=== PATIENT | female | born 1940 | race Two or more races ===

== ENCOUNTER → 2017-02-13 | Outpatient (CLI) | payer MEDICARE ==
[~2017-02-13] MED LIST: ASPI-650 PO; ATOR40TA78 PO; BUTA1CAP30 PO; CARV12.52 PO; CARV25TA12 PO; CEFT1PIG2 IV; CLON0.1T PO; DOCU-30 PO; ENOX40SY4 SQ; FLUC200T PO; FLUT9.9S NAS; GADOBUTROL 10 MMOL/10 ML PFS ONE; HYDR-3240 PO; HYDR20TA22 PO; LATA2.5D2 OP; LEVO750T26 PO; LOSA1TAB17 PO; MAGN400T7 PO; MECL25TA4 PO; METR500T PO; OMEP20CA9 PO; OXYC5TAB3 PO; POLY17PO5 PO; POTA20PA8 PO; SENN1TAB7 PO; SENN8.6C2 PO; TIMO5DRO5 EACHEYE; VANC1VIA3 IV; [UNRECOGNIZED DRUG - CODE] PO
== END | disposition home or self-care (01) ==
LOC: CFH 07:14
PROVIDERS: ATTEND Neurological Surgery
DX: D32.0 Benign neoplasm of cerebral meninges (principal); R90.82 White matter disease, unspecified; Z86.73 Personal history of transient ischemic attack (TIA), and cerebral infarction without residual deficits
CPT/HCPCS: 70553; A9585

== ENCOUNTER → 2017-04-05 | Outpatient (CLI) | payer MEDICARE ==
[~2017-04-05] MED LIST changes: +DOCU-131 PO; -DOCU-30 PO; -GADOBUTROL 10 MMOL/10 ML PFS ONE; +POTA20PA25 PO; -POTA20PA8 PO
== END | disposition home or self-care (01) ==
LOC: ROC 08:23
PROVIDERS: ATTEND Radiology Radiation Oncology
DX: D32.0 Benign neoplasm of cerebral meninges (principal)
CPT/HCPCS: 99214; G0463

== ENCOUNTER → 2017-04-12 | Outpatient (CLI) | payer MEDICARE ==
[~2017-04-12] MED LIST changes: +GADOBUTROL 10 MMOL/10 ML PFS ONE
== END | disposition home or self-care (01) ==
LOC: CFH 11:36
PROVIDERS: ATTEND Radiology Radiation Oncology
DX: D32.0 Benign neoplasm of cerebral meninges (principal)
CPT/HCPCS: 70553; A9585

== ENCOUNTER 2017-05-06 21:59 | Emergency (ER) | payer MEDICARE ==
[~2017-05-06] VITALS: Ht 160 cm; Wt 100.0 kg
[~2017-05-06 21:59] MED LIST changes: -GADOBUTROL 10 MMOL/10 ML PFS ONE; -LOSA1TAB17 PO; +LOSA1TAB22 PO
[2017-05-06] MEDS ORDERED: LIDOCAINE 1%, 20ML ONE (22:26)
[2017-05-06] MEDS ORDERED: LIDOCAINE 1%, 20ML INFIL ONE (22:30)
[2017-05-06] MEDS ORDERED: BACITRACIN ZINC OINT 500U/GM, 0.9 GM ONE (23:13)
[2017-05-06] MEDS ORDERED: BETH25TA16 PO (23:18)
[2017-05-06] MEDS ORDERED: MONT10TA9 PO (23:18)
[2017-05-06 23:20] VITALS: BP 156/60
== END 2017-05-07 00:05 | disposition home or self-care (01) ==
LOC: ED 23:14
DX: S06.0X0A Concussion without loss of consciousness, initial encounter (principal); S01.81XA Laceration without foreign body of other part of head, initial encounter; E11.9 Type 2 diabetes mellitus without complications; W06.XXXA Fall from bed, initial encounter; Y93.89 Activity, other specified; Y92.009 Unspecified place in unspecified non-institutional (private) residence as the place of occurrence of the external cause; Y99.9 Unspecified external cause status
CPT/HCPCS: 13132; 70450; 99285

== ENCOUNTER → 2017-11-08 | Outpatient (CLI) | payer MEDICARE ==
[~2017-11-08] MED LIST changes: +BETH25TA16 PO; +MONT10TA9 PO
== END ==
LOC: ROC 07:30
PROVIDERS: ATTEND Radiology Radiation Oncology
DX: Z08 Encounter for follow-up examination after completed treatment for malignant neoplasm (principal); D32.0 Benign neoplasm of cerebral meninges; Z88.0 Allergy status to penicillin; Z79.82 Long term (current) use of aspirin; Z98.890 Other specified postprocedural states
CPT/HCPCS: 99213; G0463

== ENCOUNTER 2018-01-03 06:22 | Emergency (ER) | payer MEDICARE ==
[~2018-01-03] VITALS: Ht 162.6 cm; Wt 104.0 kg
[2018-01-03 06:25] VITALS: BP 130/82
== END 2018-01-03 08:53 | disposition home or self-care (01) ==
LOC: ED 07:21
DX: L04.0 Acute lymphadenitis of face, head and neck (principal); E11.9 Type 2 diabetes mellitus without complications; Z88.5 Allergy status to narcotic agent; Z88.0 Allergy status to penicillin
CPT/HCPCS: 76536; 99284

== ENCOUNTER → 2018-02-06 | Outpatient (CLI) | payer MEDICARE ==
[~2018-02-06] MED LIST changes: +LIDOCAINE-MPF 1%, 2ML ONE; +OMNIPAQUE 350 MG/ML, 100ML BOTTLE ONE
== END | disposition home or self-care (01) ==
LOC: RAD 13:14 → EDSTATUS 14:00
PROVIDERS: ATTEND Family Medicine
DX: C82.11 Follicular lymphoma grade II, lymph nodes of head, face, and neck (principal); E11.9 Type 2 diabetes mellitus without complications; Z79.82 Long term (current) use of aspirin; Z98.890 Other specified postprocedural states; Z79.899 Other long term (current) drug therapy; Z88.5 Allergy status to narcotic agent; Z88.0 Allergy status to penicillin
CPT/HCPCS: 38505; 70491; 76942; 88305; 88341; 88342; J3490; Q9967; 19083; G0461

== ENCOUNTER → 2018-04-16 | Outpatient (CLI) | payer MEDICARE ==
[~2018-04-16] MED LIST changes: -LIDOCAINE-MPF 1%, 2ML ONE; -SENN1TAB7 PO; +SENN1TAB8 PO
== END | disposition home or self-care (01) ==
LOC: CFH 08:23
PROVIDERS: ATTEND Family Medicine
DX: R91.1 Solitary pulmonary nodule (principal); R59.9 Enlarged lymph nodes, unspecified; K44.9 Diaphragmatic hernia without obstruction or gangrene; M47.9 Spondylosis, unspecified
CPT/HCPCS: 71260; 74177; Q9967

== ENCOUNTER → 2018-04-27 | Outpatient (CLI) | payer MEDICARE ==
[~2018-04-27] MED LIST changes: -OMNIPAQUE 350 MG/ML, 100ML BOTTLE ONE
== END | disposition home or self-care (01) ==
LOC: PETCFH 13:21
PROVIDERS: ATTEND Specialist
DX: R91.1 Solitary pulmonary nodule (principal); R59.0 Localized enlarged lymph nodes; R59.9 Enlarged lymph nodes, unspecified
CPT/HCPCS: 78815; A9552

== ENCOUNTER → 2018-05-02 | Outpatient (CLI) | payer MEDICARE ==
[~2018-05-02] MED LIST changes: +GADOBUTROL 10 MMOL/10 ML PFS ONE
== END | disposition home or self-care (01) ==
LOC: CFH 09:27
PROVIDERS: ATTEND Specialist
DX: I65.21 Occlusion and stenosis of right carotid artery (principal); I67.82 Cerebral ischemia; R90.82 White matter disease, unspecified; C82.08 Follicular lymphoma grade I, lymph nodes of multiple sites
CPT/HCPCS: 70553; A9585

== ENCOUNTER → 2018-06-08 | Outpatient (CLI) | payer MEDICARE ==
[~2018-06-08] MED LIST changes: -GADOBUTROL 10 MMOL/10 ML PFS ONE; +LIDOCAINE 1%, 20ML ONE; +LIDOCAINE 1%-EPI 1:100K, 20ML ONE; +SODIUM BICARBONATE 4.0%, 5ML ONE
== END | disposition home or self-care (01) ==
LOC: CFH 07:33
PROVIDERS: ATTEND Specialist
DX: C50.512 Malignant neoplasm of lower-outer quadrant of left female breast (principal); C77.3 Secondary and unspecified malignant neoplasm of axilla and upper limb lymph nodes; Z88.1 Allergy status to other antibiotic agents; Z88.5 Allergy status to narcotic agent; Z88.8 Allergy status to other drugs, medicaments and biological substances
CPT/HCPCS: 19083; 38505; 76942; 88305; 88341; 88342; 88360; J3490

== ENCOUNTER 2018-08-02 11:20 | Outpatient (CLI) | payer MEDICARE ==
[~2018-08-02 11:20] MED LIST changes: -CLON0.1T PO; +CLON0.1T22 PO; -HYDR20TA22 PO; +HYDR20TA23 PO; -LIDOCAINE 1%, 20ML ONE; -LIDOCAINE 1%-EPI 1:100K, 20ML ONE; -SODIUM BICARBONATE 4.0%, 5ML ONE
[2018-09-06] MEDS ORDERED: LOSA1TAB25 PO (10:43)
[2018-09-06] MEDS ORDERED: ASPI-496 PO (10:43)
[2018-09-06] MEDS ORDERED: LOVA40TA2 PO (10:46)
[2018-09-06] MEDS ORDERED: ALBU8.5H8 PO (10:46)
[2018-09-06] MEDS ORDERED: TIOT18CA INH (10:46)
== END 2018-08-02 23:59 | disposition home or self-care (01) ==
LOC: RAD 11:20
PROVIDERS: ATTEND Internal Medicine Cardiovascular Disease
DX: Z02.9 Encounter for administrative examinations, unspecified (principal)

== ENCOUNTER → 2018-08-03 | Outpatient (CLI) | payer MEDICARE | END | disposition home or self-care (01) | LOC: CVU 07:42 | PROVIDERS: ATTEND Internal Medicine Cardiovascular Disease | DX: Z01.810 Encounter for preprocedural cardiovascular examination (principal); I08.0 Rheumatic disorders of both mitral and aortic valves; I25.10 Atherosclerotic heart disease of native coronary artery without angina pectoris; I46.9 Cardiac arrest, cause unspecified | CPT/HCPCS: 93306 ==

== ENCOUNTER → 2018-08-09 | Outpatient (CLI) | payer MEDICARE ==
[~2018-08-09] MED LIST changes: +REGADENOSON 0.4 MG/5 ML SYRINGE ONE
== END | disposition home or self-care (01) ==
LOC: RAD 11:36
PROVIDERS: ATTEND Internal Medicine Cardiovascular Disease
DX: Z01.810 Encounter for preprocedural cardiovascular examination (principal); I25.10 Atherosclerotic heart disease of native coronary artery without angina pectoris; Z86.74 Personal history of sudden cardiac arrest
CPT/HCPCS: 78452; 93017; A9502; J2785

== ENCOUNTER → 2018-08-14 | Outpatient (CLI) | payer MEDICARE ==
[~2018-08-14] MED LIST changes: +GADOBUTROL 10 MMOL/10 ML PFS ONE; -REGADENOSON 0.4 MG/5 ML SYRINGE ONE
== END | disposition home or self-care (01) ==
LOC: CFH 07:21
PROVIDERS: ATTEND Radiology Radiation Oncology
DX: D32.0 Benign neoplasm of cerebral meninges (principal)
CPT/HCPCS: 70553; A9585

== ENCOUNTER → 2018-08-15 | Outpatient (CLI) | payer MEDICARE ==
[~2018-08-15] MED LIST changes: -GADOBUTROL 10 MMOL/10 ML PFS ONE
== END | disposition home or self-care (01) ==
LOC: ROC 08:10
PROVIDERS: ATTEND Radiology Radiation Oncology
DX: Z08 Encounter for follow-up examination after completed treatment for malignant neoplasm (principal); D32.0 Benign neoplasm of cerebral meninges
CPT/HCPCS: 99213; G0463

== ENCOUNTER 2018-09-13 05:56 | Observation (INO) | payer MEDICARE ==
[~2018-09-13] VITALS: Ht 162.6 cm; Wt 106.8 kg
[~2018-09-13 05:56] MED LIST changes: +ALBU8.5H8 PO; +ASPI-496 PO; +LOSA1TAB25 PO; +LOVA40TA2 PO; +SENN-177 PO; -SENN1TAB8 PO; +TIOT18CA INH
[2018-09-13 06:22] VITALS: BP 152/80
[2018-09-13] MEDS ORDERED: LACTATED RINGERS 1,000 ML IV SCH ×2 (06:34→15:00)
[2018-09-13] MEDS ORDERED: ISOSULFAN BLUE 10 MG/ML, 5ML IV ONE (07:17)
[2018-09-13] MEDS ORDERED: BUPIVACAINE/PF-EPI 0.5% 1:200K ONE (07:17)
[2018-09-13] MEDS ORDERED: MIDAZOLAM 1 MG/ML, 2ML ONE (07:48)
[2018-09-13] MEDS ORDERED: FENTANYL PF 250 MCG/5ML ONE (07:49)
[2018-09-13] MEDS ORDERED: PROPOFOL 10 MG/ML, 20ML ONE (07:50)
[2018-09-13] MEDS ORDERED: SUCCINYLCHOLINE 20 MG/ML, 10ML ONE (07:52)
[2018-09-13] MEDS ORDERED: DEXAMETHASONE 4 MG/ML, 5ML ONE (07:53)
[2018-09-13] MEDS ORDERED: NALOXONE 0.4 MG/ML, 1ML ONE (07:53)
[2018-09-13] MEDS ORDERED: KETOROLAC 30 MG/1 ML ONE (07:53)
[2018-09-13] MEDS ORDERED: ALBUTEROL SULFATE 200 PUFFS/8.5 GR INH ONE (07:53)
[2018-09-13] MEDS ORDERED: CEFAZOLIN 1,000 MG ONE (07:53)
[2018-09-13] MEDS ORDERED: ONDANSETRON 2MG/ML, 2ML ONE (07:53)
[2018-09-13] MEDS ORDERED: EPHEDRINE 50 MG/ML, 1ML ONE (07:53)
[2018-09-13] MEDS ORDERED: GLYCOPYRROLATE 0.2MG/1ML, 5ML ONE (07:53)
[2018-09-13] MEDS ORDERED: ROCURONIUM 10 MG/ML,10ML ONE (07:53)
[2018-09-13] MEDS ORDERED: GABAPENTIN 300 MG CAPSULE PO ONE (08:00)
[2018-09-13] MEDS ORDERED: SCOPOLAMINE PATCH, 1.5MG PATCH.TD72 TD ONE (08:00)
[2018-09-13] MEDS ORDERED: ACETAMINOPHEN 500 MG TABLET PO ONE (08:00)
[2018-09-13] MEDS ORDERED: DIAZEPAM 5 MG TABLET PO ONE (08:00)
[2018-09-13] MEDS ORDERED: ALBUTEROL HFA 90 MCG/SPRAY ONE (09:15)
[2018-09-13] MEDS ORDERED: ONDANSETRON 2MG/ML, 2ML IV PRN ×2 (09:30→15:00)
[2018-09-13] MEDS ORDERED: FENTANYL PF 100 MCG/2ML IV PRN (09:30)
[2018-09-13] MEDS ORDERED: hydrALAzine 20 MG/ML, 1ML IV PRN (09:30)
[2018-09-13] MEDS ORDERED: HALOPERIDOL 5 MG/ML IV PRN (09:30)
[2018-09-13] MEDS ORDERED: ALBUTEROL SULFATE 2.5 MG/3 ML NPPB PRN ×2 (09:30→13:30)
[2018-09-13] MEDS ORDERED: PROMETHAZINE 12.5 MG SUPP PR PRN (09:30)
[2018-09-13] MEDS ORDERED: MEPERIDINE/PF 25MG/0.5ML IVPush PRN (09:30)
[2018-09-13] MEDS ORDERED: LABETALOL 5MG/ML, 20ML IV PRN (09:30)
[2018-09-13] MEDS ORDERED: HYDROmorphone 2 MG/ML, 1ML IVPush PRN (09:30)
[2018-09-13] MEDS ORDERED: ONDANSETRON ODT 8 MG PO PRN (09:30)
[2018-09-13] MEDS ORDERED: MORPHINE SULFATE 4 MG/ML, 1ML IVPush PRN (09:30)
[2018-09-13] MEDS ORDERED: MIDAZOLAM 1 MG/ML, 2ML IV PRN (09:30)
[2018-09-13] MEDS ORDERED: OXYcodone 5 MG/5 ML ORAL.SOL UDC PO PRN (09:30)
[2018-09-13] MEDS ORDERED: DIAZEPAM 5 MG/ML, 2ML IVPush PRN (09:30)
[2018-09-13] MEDS ORDERED: PROMETHAZINE 25 MG/ML, 1ML IV PRN (09:30)
[2018-09-13] MEDS ORDERED: EPHEDRINE 50 MG/ML, 1ML IVPush PRN (09:30)
[2018-09-13] MEDS ORDERED: LABETALOL 5 MG/ML SYRINGE IV PRN ×2 (10:56→15:00)
[2018-09-13 14:00] VITALS: BP 145/85
[2018-09-13] MEDS ORDERED: [UNRECOGNIZED DRUG - OTHER] MC SCH (15:00)
[2018-09-13] MEDS ORDERED: IBUPROFEN 600 MG TABLET PO PRN (15:00)
[2018-09-13] MEDS ORDERED: morphine SULFATE 10 MG/ML, 1ML IV PRN (15:00)
[2018-09-13] MEDS: CEFAZOLIN PMX 2GM/50ML 50 ML IVPB SCH (15:52)
[2018-09-13] MEDS ORDERED: PROAIR HOMEINH PRN (17:00)
[2018-09-13 19:32] VITALS: BP 140/81
[2018-09-13] MEDS: TIMOLOL OPTH HOMEOPHTH SCH (21:00)
[2018-09-13] MEDS: MECLIZINE CHEWABLE 25 MG TAB PO SCH (21:00)
[2018-09-13] MEDS: LOVASTATIN 40 MG TABLET PO SCH (21:00)
[2018-09-13] MEDS: MONTELUKAST 10 MG TABLET PO SCH (21:00)
[2018-09-14] MEDS: CEFAZOLIN PMX 2GM/50ML 50 ML IVPB SCH (00:10)
[2018-09-14 00:16] VITALS: BP 135/76
[2018-09-14 04:48] VITALS: BP 130/83
[2018-09-14] MEDS: OMEPRAZOLE 20 MG CAPSULE.DR PO SCH (05:04)
[2018-09-14] MEDS: LACTATED RINGERS 1,000 ML IV SCH (08:03)
[2018-09-14] MEDS: LOSARTAN 50MG TABLET PO SCH (08:03)
[2018-09-14] MEDS: HYDROCHLOROTHIAZIDE 12.5 MG CAPSULE PO SCH (08:04)
[2018-09-14] MEDS: BETHANECHOL 25 MG TABLET PO SCH ×2 (08:04→16:04)
[2018-09-14] MEDS: CARVEDILOL 25 MG TABLET PO SCH (08:04)
[2018-09-14] MEDS: TIMOLOL OPTH HOMEOPHTH SCH ×2 (08:04→20:18)
[2018-09-14] MEDS: SPIRIVA 18 MCG INH SCH (08:05)
[2018-09-14] MEDS: MECLIZINE CHEWABLE 25 MG TAB PO SCH ×2 (08:16→20:18)
[2018-09-14 08:26] VITALS: BP 138/78
[2018-09-14 13:26] VITALS: BP 123/75
[2018-09-14 19:03] VITALS: BP 120/70
[2018-09-14] MEDS: MONTELUKAST 10 MG TABLET PO SCH (20:18)
[2018-09-14] MEDS: LOVASTATIN 40 MG TABLET PO SCH (20:18)
[2018-09-15] MEDS: LACTATED RINGERS 1,000 ML IV SCH (00:18)
[2018-09-15] MEDS: BETHANECHOL 25 MG TABLET PO SCH ×2 (00:18→08:36)
[2018-09-15 01:14] VITALS: BP 144/84
[2018-09-15] MEDS: OMEPRAZOLE 20 MG CAPSULE.DR PO SCH (05:19)
[2018-09-15 05:22] LABS: BASOPHILS # (AUTO) 0.04 x10^3/uL (0-0.1); BASOPHILS % (AUTO) 1 % (0-1); EOSINOPHILS # (AUTO) 0.21 x10^3/uL (0-0.4); EOSINOPHILS % (AUTO) 3 % (1-7); LYMPHOCYTES # (AUTO) 2.05 x10^3/uL (1-3.4); LYMPHOCYTES % (AUTO) 24 % (22-44); MD NO; MEAN CORPUSCULAR HEMOGLOBIN 32.6 pg (27.0-34.8); MEAN CORPUSCULAR HGB CONC 34.7 g/dL (32.4-35.8); MEAN CORPUSCULAR VOLUME 94.1 fL (80-100); MEAN PLATELET VOLUME 9.9 fL (7.4-10.4); MONOCYTES # (AUTO) 0.76 x10^3/uL (0.2-0.8); MONOCYTES % (AUTO) 9 % (2-9); NEUTROPHILS # (AUTO) 5.49 x10^3/uL (1.8-6.8); NEUTROPHILS % (AUTO) 64 % (42-75); PLATELET COUNT 192 x10^3/uL (130-400); RED BLOOD COUNT 3.51 x10^6/uL (3.82-5.3); RED CELL DISTRIBUTION WIDTH 14.8 % (9.6-15.2)
[2018-09-15 07:30] VITALS: BP 147/75
[2018-09-15] MEDS: HYDROCHLOROTHIAZIDE 12.5 MG CAPSULE PO SCH (08:36)
[2018-09-15] MEDS: LOSARTAN 50MG TABLET PO SCH (08:36)
[2018-09-15] MEDS: CARVEDILOL 25 MG TABLET PO SCH (08:36)
[2018-09-15] MEDS: MECLIZINE CHEWABLE 25 MG TAB PO SCH (08:36)
[2018-09-15] MEDS: TIMOLOL OPTH HOMEOPHTH SCH (08:37)
[2018-09-15] MEDS: SPIRIVA 18 MCG INH SCH (08:37)
[2018-09-15] MEDS ORDERED: TRAM-47 PO (09:46)
[2018-09-16] MEDS ORDERED: BETHANECHOL 25 MG TABLET PO SCH (09:00)
== END 2018-09-15 10:38 | disposition home or self-care (01) ==
LOC: OUT 05:56 → 4NOR 11:49 → OUT 12:42 → OBSVTOIN 09-14 07:30 → INTOOBSV 09-14 07:30 → DCLOUNGE 09-15 10:22
PROVIDERS: ADMIT Surgery; ATTEND Surgery
DX: C50.912 Malignant neoplasm of unspecified site of left female breast (principal); E78.5 Hyperlipidemia, unspecified; I10 Essential (primary) hypertension; I25.10 Atherosclerotic heart disease of native coronary artery without angina pectoris; I25.2 Old myocardial infarction; J44.9 Chronic obstructive pulmonary disease, unspecified; Z85.72 Personal history of non-Hodgkin lymphomas
CPT/HCPCS: 19307; 36415; 85025; 88305; 88307; 88341; 88342; 94640; 96365; 96366; G0378; J0330; J0690; J1100; J1885; J2250; J2310; J2405; J2704; J3010; J3490; J7120; J7613

== ENCOUNTER → 2018-11-15 | Outpatient (CLI) | payer MEDICARE ==
[~2018-11-15] MED LIST changes: +OMNIPAQUE 350 MG/ML, 100ML BOTTLE ONE; +TRAM-47 PO
== END | disposition home or self-care (01) ==
LOC: CFH 08:38
PROVIDERS: ATTEND Specialist
DX: R59.1 Generalized enlarged lymph nodes (principal); N63.20 Unspecified lump in the left breast, unspecified quadrant; K44.9 Diaphragmatic hernia without obstruction or gangrene; R91.1 Solitary pulmonary nodule
CPT/HCPCS: 71260; 74177; 82565; Q9967

== ENCOUNTER 2019-08-12 08:07 | Outpatient (CLI) | payer MEDICARE ==
[~2019-08-12 08:07] MED LIST changes: -MAGN400T7 PO; +MAGN400T9 PO; +MECL-101 PO; -MECL25TA4 PO; +MONT10TA11 PO; -MONT10TA9 PO; -OMNIPAQUE 350 MG/ML, 100ML BOTTLE ONE
== END 2019-08-12 23:59 | disposition home or self-care (01) ==
LOC: CFH 08:07
PROVIDERS: ATTEND Specialist
DX: C82.08 Follicular lymphoma grade I, lymph nodes of multiple sites (principal); C50.112 Malignant neoplasm of central portion of left female breast
CPT/HCPCS: 76700

== ENCOUNTER → 2019-08-16 | Outpatient (CLI) | payer MEDICARE ==
[~2019-08-16] MED LIST changes: +GADOTERATE 10 MMOL/20 ML SYR ONE
== END | disposition home or self-care (01) ==
LOC: CFH 10:41
PROVIDERS: ATTEND Radiology Radiation Oncology
DX: I67.82 Cerebral ischemia (principal); D32.0 Benign neoplasm of cerebral meninges; I65.21 Occlusion and stenosis of right carotid artery; J34.89 Other specified disorders of nose and nasal sinuses; G31.89 Other specified degenerative diseases of nervous system; Z85.79 Personal history of other malignant neoplasms of lymphoid, hematopoietic and related tissues; Z85.3 Personal history of malignant neoplasm of breast
CPT/HCPCS: 70553; A9575

== ENCOUNTER → 2019-09-04 | Outpatient (CLI) | payer MEDICARE ==
[~2019-09-04] MED LIST changes: -GADOTERATE 10 MMOL/20 ML SYR ONE
== END | disposition home or self-care (01) ==
LOC: ROC 07:28
PROVIDERS: ATTEND Radiology Radiation Oncology
DX: C82.20 Follicular lymphoma grade III, unspecified, unspecified site (principal); D32.0 Benign neoplasm of cerebral meninges; C50.912 Malignant neoplasm of unspecified site of left female breast
CPT/HCPCS: 99213; G0463

== ENCOUNTER 2020-02-12 10:47 | Outpatient (CLI) | payer MEDICARE | END 2020-02-12 23:59 | disposition home or self-care (01) | LOC: CFH 10:47 | PROVIDERS: ATTEND Surgery | DX: R92.8 Other abnormal and inconclusive findings on diagnostic imaging of breast (principal); Z85.3 Personal history of malignant neoplasm of breast; Z90.12 Acquired absence of left breast and nipple | CPT/HCPCS: 76642; 77065; G0279; 77063 ==

== ENCOUNTER → 2020-08-19 | Outpatient (CLI) | payer MEDICARE ==
[~2020-08-19] MED LIST changes: -ASPI-650 PO; +ASPI325T20 PO; +GADOTERATE 10 MMOL/20 ML SYR ONE; +HYDR-1067 PO; -HYDR-3240 PO; -HYDR20TA23 PO; +HYDR20TA24 PO; -MONT10TA11 PO; +MONT10TA17 PO; -OXYC5TAB3 PO; +OXYC5TAB98 PO
== END | disposition home or self-care (01) ==
LOC: CFH 06:53
PROVIDERS: ATTEND Radiology Radiation Oncology
DX: D32.0 Benign neoplasm of cerebral meninges (principal); I65.21 Occlusion and stenosis of right carotid artery; J34.1 Cyst and mucocele of nose and nasal sinus
CPT/HCPCS: 70553; A9575

== ENCOUNTER → 2020-08-27 | Outpatient (CLI) | payer MEDICARE ==
[~2020-08-27] MED LIST changes: -GADOTERATE 10 MMOL/20 ML SYR ONE
== END | disposition home or self-care (01) ==
LOC: ROC 09:45
PROVIDERS: ATTEND Radiology Radiation Oncology
DX: Z08 Encounter for follow-up examination after completed treatment for malignant neoplasm (principal); D32.0 Benign neoplasm of cerebral meninges
CPT/HCPCS: 99213; G0463

== ENCOUNTER → 2020-09-11 | Outpatient (CLI) | payer MEDICARE ==
[~2020-09-11] MED LIST changes: +OMNIPAQUE 350 MG/ML, 150 ML BOTTLE ONE
== END | disposition home or self-care (01) ==
LOC: CFH 08:25
PROVIDERS: ATTEND Specialist
DX: C82.08 Follicular lymphoma grade I, lymph nodes of multiple sites (principal); C50.112 Malignant neoplasm of central portion of left female breast; K44.9 Diaphragmatic hernia without obstruction or gangrene; R91.1 Solitary pulmonary nodule; G89.3 Neoplasm related pain (acute) (chronic); D32.9 Benign neoplasm of meninges, unspecified; R59.1 Generalized enlarged lymph nodes; M50.30 Other cervical disc degeneration, unspecified cervical region
CPT/HCPCS: 70491; 71260; 74177; 82565; Q9967

== ENCOUNTER 2020-10-13 08:08 | Outpatient (CLI) | payer MEDICARE ==
[~2020-10-13 08:08] MED LIST changes: -OMNIPAQUE 350 MG/ML, 150 ML BOTTLE ONE
== END 2020-10-13 23:59 | disposition home or self-care (01) ==
LOC: RAD 08:08
PROVIDERS: ATTEND Specialist
DX: C82.08 Follicular lymphoma grade I, lymph nodes of multiple sites (principal); C50.112 Malignant neoplasm of central portion of left female breast; R59.1 Generalized enlarged lymph nodes

== ENCOUNTER 2021-02-05 12:07 | Emergency (ER) | payer MEDICARE ==
[~2021-02-05] VITALS: Ht 162.6 cm; Wt 102.4 kg
[~2021-02-05 12:07] MED LIST changes: -HYDR-1067 PO; +HYDR-2214 PO; -VANC1VIA3 IV; +VANC1VIA36 IV
--- NOTE | 2021-02-05 12:29 | NUR ---
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 Pt sats 99% on 2L/min with ED Board note stating RA sat was 88%. Pt is supposed to be on continuous O2 at 2L/min and had it on while awaiting triage and directly after RA sat was assessed per pt's friend.
[2021-02-05] MEDS ORDERED: FLUT1AER INH (12:41)
[2021-02-05] MEDS ORDERED: TIOT18CA INH (12:41)
[2021-02-05 12:43] LABS: BASOPHILS % (AUTO) 1 % (0-1); EOSINOPHILS % (AUTO) 10 % (1-7); LYMPHOCYTES % (AUTO) 17 % (22-44); MEAN CORPUSCULAR HGB CONC 32.8 g/dL (32.4-35.8); MEAN PLATELET VOLUME 8.4 fL (7.4-10.4); MONOCYTES % (AUTO) 8 % (2-9); NEUTROPHILS % (AUTO) 65 % (42-75); PLATELET COUNT 240 x10^3/uL (130-400); RED BLOOD COUNT 4.13 x10^6/uL (3.82-5.3); RED CELL DISTRIBUTION WIDTH 16.9 % (9.6-15.2)
--- NOTE | 2021-02-05 12:45 | NUR ---
Pt taken to radiology at this time.
[2021-02-05 12:54] LABS: ALBUMIN 2.8 g/dL (3.4-5.0); ANION GAP 3 mmol/L (5-15); CALCIUM 8.6 mg/dL (8.5-10.1); CHLORIDE 105 mmol/L (98-107)
--- NOTE | 2021-02-05 13:07 | NUR ---
Labs and radiology results reviewed and chart marked for recheck at this time.
--- NOTE | 2021-02-05 13:24 | NUR ---
Pt VS reassessed. Aware of wait for MD to come speak with her about findings and plan of care.
[2021-02-05 14:03] VITALS: BP 155/59
--- NOTE | 2021-02-05 14:18 | NUR ---
PA at bedside to speak with pt. Also states Dr. Frye is to come see her prior to decision for d/c vs admit made.
--- NOTE | 2021-02-05 14:29 | NUR ---
Dr. Frye at bedside at this time.
== END 2021-02-05 15:05 | disposition home or self-care (01) ==
LOC: ED 13:23
DX: S80.02XA Contusion of left knee, initial encounter (principal); S80.12XA Contusion of left lower leg, initial encounter; R94.31 Abnormal electrocardiogram [ECG] [EKG]; E11.9 Type 2 diabetes mellitus without complications; W01.0XXA Fall on same level from slipping, tripping and stumbling without subsequent striking against object, initial encounter; Y93.89 Activity, other specified; Y92.009 Unspecified place in unspecified non-institutional (private) residence as the place of occurrence of the external cause; Y99.8 Other external cause status
CPT/HCPCS: 36415; 80048; 82040; 85025; 93005; 99285